=== PATIENT | female | born 1995 | race Caucasian/White ===

== ENCOUNTER 2022-04-14 19:21 | Emergency (ER) | payer SELFPAY ==
[~2022-04-14] VITALS: Ht 165.1 cm; Wt 99.8 kg
[2022-04-14 19:37] VITALS: BP 130/80
--- NOTE | 2022-04-14 19:37 | NUR ---
TO BED AMBULATORY
[2022-04-14] MEDS ORDERED: KETOROLAC 60 MG/2 ML VIAL IM ONE (19:45)
--- NOTE | 2022-04-14 19:48 | NUR ---
xray at bedside
--- NOTE | 2022-04-14 19:52 | NUR ---
Pt walked in c/o left ankle pain since yesterday s/p playing volleyball and rolling ankle. Pt ambulated with a limp 2/2 guarding ankle. +limited ROM, +swelling. Skin intact, no obvious deformity noted. Pt states she took Excedrin at 1500 today with some relief. Pt states she iced injury yesterday.
--- NOTE | 2022-04-14 20:22 | NUR ---
Dr. Robles examining patient.
--- NOTE | 2022-04-14 20:51 | NUR ---
Patient discharged with v/s stable. Written and verbal after care instructions given and explained. Patient verbalized understanding. Ambulatory with steady gait. All questions addressed prior to discharge. Advised to follow up with PMD.
[2022-04-14 20:52] VITALS: BP 127/80
== END 2022-04-14 20:51 | disposition home or self-care (01) ==
LOC: MED 19:21
DX: S93.402A Sprain of unspecified ligament of left ankle, initial encounter (principal); Z90.49 Acquired absence of other specified parts of digestive tract; X58.XXXA Exposure to other specified factors, initial encounter; Y93.68 Activity, volleyball (beach) (court); Y92.89 Other specified places as the place of occurrence of the external cause; Y99.8 Other external cause status
CPT/HCPCS: 73610; 81025; 96372; 99283; J1885; Q0092